=== PATIENT | male | born 2000 | race Caucasian/White ===

== ENCOUNTER → 2022-02-25 07:01 | Outpatient (CLI) | payer OTHER, SELFPAY ==
--- NOTE | ~2022-02-25 | MR_ITS ---
EXAMINATION: MR knee LT wo con DATE: 02/25/2022 07:39 INDICATION: Left knee pain and sprain of the medial collateral ligament TECHNIQUE: Magnetic resonance imaging (MRI) of the left knee was performed without intravenous contra st. Sequences included coronal PD-weighted FSE, coronal PD-weighted FS FSE, sagittal T2-weighted FSE , sagittal PD-weighted FS FSE and axial PD weighted fat saturated FSE. COMPARISON: None. FINDINGS: Medial compartment: Medial meniscus is normal. Articular cartilage is normal. Lateral compartment: Lateral meniscus is normal. Articular cartilage is normal. Patellofemoral compartment: Articular cartilage is normal. Ligaments and tendons: Complete tear of the anterior cruciate ligament. The posterior cruciate ligament is normal. There is edema surrounding the proximal half of the medial collateral ligament with small partial tear along t he anterior margin of the ligament. The fibular collateral ligament complex is normal. The extensor m echanism is normal. The visualized medial and lateral hamstring tendons as well as the iliotibial ban d are normal. Fluid: Moderate-sized left knee joint effusion. No loose osteochondral bodies identified. Osseous/other: There is curvilinear low signal intensity subarticular impaction fracture line with increased concavi ty to the lateral sulcus of the lateral femoral condyle without evident cortical discontinuity . Rojelio esponding bone contusion without evident fracture line along the posterior rim of the lateral tibial plateau. Additional bone contusions along both the anterior and posterior rims the medial tibial plat eau and along the medial rim of the anterior weightbearing medial femoral condyle. No pathologic donnie ow replacing process. IMPRESSION: 1. Complete tear of the anterior cruciate ligament 2. Mild partial tear/moderate grade sprain of the proximal medial collateral ligament. 3. Small impaction fracture underlying the lateral sulcus of the lateral femoral condyle with additio nal bone contusions at both the medial lateral tibial plateau and medial rim of the anterior weightbe aring medial femoral condyle. Reviewed, dictated and finalized at location A. IMPRESSION: 1. Complete tear of the anterior cruciate ligament 2. Mild partial tear/moderate grade sprain of the proximal medial collateral li gament. 3. Small impaction fracture underlying the lateral sulcus of the lateral femora l condyle with additional bone contusions at both the medial lateral tibial martina teau and medial rim of the anterior weightbearing medial femoral condyle.
== END ==
PROVIDERS: PCP Orthopaedic Surgery; Visit Provider Orthopaedic Surgery
DX: S83.512A Sprain of anterior cruciate ligament of left knee, initial encounter (principal); X58.XXXA Exposure to other specified factors, initial encounter
CPT/HCPCS: 73721

== ENCOUNTER 2022-10-28 08:41 | Emergency (ER) | payer OTHER, SELFPAY ==
[2022-10-28 08:50] VITALS: BP 133/67; PULSE 72; RESP 18; TEMP 37; O2SAT 100
--- NOTE | 2022-10-28 09:37 | ED.URI ---
HPI - URI/Sore Throat General Chief Complaint: Upper Respiratory Infection Stated Complaint: sore throat Time Seen by Provider: 10/28/22 09:37 Source: patient, RN notes reviewed and old records reviewed Mode of arrival: ambulatory Limitations: no limitations History of Present Illness HPI Narrative: 22-year-old male presents to the [facility] with complaints of a sore throat. Symptoms for 2 weeks. States had the beginning he felt feverish. Reports swollen glands to the left. States he has been using salt water gargles with no relief. Related Data Allergies Allergy/AdvReac Type Severity Reaction Status Date / Time NKDA Allergy Unknown Unknown Uncoded 10/28/22 09:34 Review of Systems Review of Systems: All systems reviewed & are unremarkable except as noted in HPI and below Constitutional: Constitutional: Reports no additional constitutional complaints Eyes: Eyes: Reports no additional eye complaints ENT: Reports as per HPI and Reports sore throat Cardiovascular: Cardiovascular: Reports no additional cardiovascular complaints, Denies chest pain and Denies dyspnea Respiratory: Respiratory: Reports no additional respiratory complaints, Denies chest congestion, Denies cough and Denies dyspnea Gastrointestinal: Gastrointestinal: Reports no additional gastrointestinal complaints, Denies abdominal pain, Denies nausea and Denies vomiting Musculoskeletal: Musculoskeletal: Reports no additional musculoskeletal complaints Integumentary/Breasts: Skin/Breast: Reports system reviewed and no additional complaints, except as docu Neurologic: Reports system reviewed and no additional complaints, except as documented Psychiatric: Psychiatric: Reports no additional psychiatric complaints Allergic/Immunologic: Allergic/Immunologic: Reports no additional allergic/immunologic complaints PMFSH Past Medical History Medical History GERD (gastroesophageal reflux disease) Wears glasses Surgical History Surgical History History of myringotomy Bilateral ear Hx of tonsillectomy Family History Family History Other Breast cancer Hypertension Social History Social History Smoking status: Never smoker Alcohol intake: current Substance use: current Substance use type: marijuana Gender identity (if verbalized by the patient): Male Comments At the time of my signature, I reviewed and agree with the nursing past medical, surgical, social, and family history. There is no relevant family history pertinent to the patient complaint. Exam Const: General: cooperative, healthy appearing, comfortable, no acute distress, well developed, alert and well nourished Nutritional Appearance: well nourished Orientation/consciousness: patient oriented x3 Limitations: no limitations HENMT: Head: normal to inspection Ears: hearing grossly normal bilaterally and external ears normal Face/Nose/Sinus: Normal external nose present, Normal nares present, Normal nasal mucous membranes and turbinates present and normal facial exam Face and sinus: normal facial exam Mouth: Yes Normal oral and palatal mucosa present, Yes lip normal and Yes moist mucous membranes Throat: posterior oropharynx normal, uvula midline, tonsils absent and no uvular edema Eyes: General: appearance normal, both eyes and all related structures Alignment and Position: alignment normal Periorbital: periorbital findings normal Conjunctivae: conjunctivae normal Pupils: Equal, round and reactive pupils present EOM: EOMs intact bilaterally Neck: Neck: normal visual inspection, full ROM, no lymphadenopathy and no meningeal signs Chest: Chest palpation & inspection: normal inspection of the chest Resp: Effort & Inspection: normal respiratory effort and able to
== END 2022-10-28 09:53 | disposition home or self-care (01) ==
PROVIDERS: Emergency Provider Nurse Practitioner
DX: J02.9 Acute pharyngitis, unspecified (principal)
CPT/HCPCS: 87081; 99213; G0463

== ENCOUNTER 2022-12-21 09:02 | Emergency (ER) | payer OTHER, SELFPAY ==
[2022-12-21 09:12] VITALS: BP 113/78; PULSE 58; RESP 18; TEMP 36.6; O2SAT 100
--- NOTE | 2022-12-21 09:39 | ED.URI ---
HPI - URI/Sore Throat General Chief Complaint: Upper Respiratory Infection Stated Complaint: Sore Throat Time Seen by Provider: 12/21/22 09:39 History of Present Illness HPI Narrative: 22-year-old male presented for complaint of sore throat worsening over the past week. He endorses pain is worse with swallowing, has runny nose and body aches. Denies sick contacts. Denies cough, sob, wheezing, n/v/d/f/c. Not taking anything for symptoms. Related Data Allergies Allergy/AdvReac Type Severity Reaction Status Date / Time No Known Allergies Allergy Verified 12/21/22 09:11 Review of Systems Review of Systems: CONSTITUTIONAL: Denies fever, chills, or sweats. EYES: Denies visual changes, redness, or discharge. ENT: per HPI CARDIOVASCULAR: Denies chest pain, palpitations, or edema. RESPIRATORY: Denies dyspnea. GASTROINTESTINAL: Denies abdominal pain, nausea, vomiting, or diarrhea. SKIN: Denies rash, itching, or wounds. MUSCULOSKELETAL: Denies back pain, joint pain, or myalgia. NEUROLOGIC: Denies headache PMFSH Past Medical History Medical History GERD (gastroesophageal reflux disease) Wears glasses Surgical History Surgical History History of myringotomy Bilateral ear Hx of tonsillectomy Family History Family History Other Breast cancer Hypertension Social History Social History Smoking status: Never smoker Alcohol intake: current Substance use: current Substance use type: marijuana Living arrangements: with family Occupation/Education: student Gender identity (if verbalized by the patient): Male Exam Narrative: GENERAL: Ill-appearing, no acute distress. EYES: conjunctivae clear ENT: Mucous membranes moist. TM pearly villarreal with normal light reflex bilaterally; no tragal tenderness. Oropharynx erythematous without lesions. Tonsils absent. No drooling, no hoarseness, no trismus, uvula midline. No tripod positioning, hot potato voice, or soft palate swelling. NECK: Supple. No lymphadenopathy CHEST: Clear to auscultation, breath sounds equal. No respiratory distress, speaks in full sentences. HEART: Regular rate and rhythm. No murmur heard. SKIN: Warm, dry, no rash. NEURO: Alert and oriented x3. Course Course Emergency Course: Patient is aware of diagnosis, understands and agrees to treatment plan. Anticipatory guidance given. Patient agrees to follow-up as directed and is aware of reasons to seek care at the emergency department. Portions of this record may have been created with voice recognition software Level of Care: Express Care Visit Vital Signs Vital signs: Vital Signs Temperature 97.8 F 12/21/22 09:12 Pulse Rate 58 L 12/21/22 09:12 Respiratory Rate 18 12/21/22 09:12 Blood Pressure 113/78 12/21/22 09:12 Pulse Oximetry 100 12/21/22 09:12 Temperature 97.8 F 12/21/22 09:12 Pulse Rate 58 L 12/21/22 09:12 Respiratory Rate 18 12/21/22 09:12 Blood Pressure 113/78 12/21/22 09:12 Pulse Oximetry 100 12/21/22 09:12 MDM - URI/Sore Throat MDM Narrative Medical decision making narrative: strep result reviewed with pt. Advise supportive treatments. Patient is appropriate for outpatient treatment and follow-up. Differential Diagnosis Differential diagnosis: Likely upper respiratory infection, viral infection and pharyngitis Lab Data Labs: Strep Screen Positive Group A Strep *(Reference Range: Negative)* Discharge Plan Discharge Clinical Impression: Strep pharyngitis Patient Disposition: Home, Self-Care Condition: Stable Instructions: Antibiotic Form, Strep Throat (ED) Additional Instructions: - Take the antibiotic as directed. Fever
== END 2022-12-21 09:49 | disposition home or self-care (01) ==
PROVIDERS: Emergency Provider Nurse Practitioner Family
DX: J02.0 Streptococcal pharyngitis (principal); F12.90 Cannabis use, unspecified, uncomplicated; K21.9 Gastro-esophageal reflux disease without esophagitis
CPT/HCPCS: 87880; 99213; G0463

== ENCOUNTER 2023-08-26 17:47 | Emergency (ER) | payer OTHER, SELFPAY ==
[2023-08-26 17:59] VITALS: BP 128/66; PULSE 63; RESP 16; TEMP 37.6; O2SAT 99
--- NOTE | 2023-08-26 18:15 | ED.URI ---
HPI - URI/Sore Throat General Chief Complaint: Upper Respiratory Infection Stated Complaint: fever,cough Time Seen by Provider: 08/26/23 18:10 Source: patient and RN notes reviewed Mode of arrival: ambulatory Limitations: no limitations History of Present Illness HPI Narrative: Patient presents today complaining of a 3 day history of cough, subjective fever, body aches, sweats, chills, scratchy throat, rhinorrhea. He has been taking Advil and Tylenol with mild relief. States his brother has recently been ill with similar symptoms. Related Data Home Medications Medication Instructions Recorded Confirmed No Home Medications 08/26/23 08/26/23 Allergies Allergy/AdvReac Type Severity Reaction Status Date / Time No Known Allergies Allergy Verified 08/26/23 17:55 Review of Systems Review of Systems: CONSTITUTIONAL: + body aches, fever, chills, sweats EYES: Denies visual changes, redness, or discharge. ENT: Denies congestion, or otalgia.+ rhinorrhea sore throat CARDIOVASCULAR: Denies chest pain, palpitations, or edema. RESPIRATORY: Denies dyspnea.+ cough GASTROINTESTINAL: Denies abdominal pain, nausea, vomiting, or diarrhea. GENITOURINARY: Denies dysuria or hematuria. SKIN: Denies rash, itching, or wounds. MUSCULOSKELETAL: Denies back pain, joint pain, or myalgia. NEUROLOGIC: Denies headache, numbness, tingling, or weakness. PSYCH: Denies depression or anxiety. [facility] Past Medical History Medical History GERD (gastroesophageal reflux disease) Wears glasses Surgical History Surgical History History of myringotomy Bilateral ear Hx of tonsillectomy Family History Family History Other Breast cancer Hypertension Social History Social History Smoking status: Never smoker Alcohol intake: current Substance use: current Substance use type: marijuana Living arrangements: with family Occupation/Education: student Gender identity (if verbalized by the patient): Male Comments At time of signature, I have reviewed and agree with nursing past medical, surgical, social and family history unless otherwise noted. Please see nursing chart for further information. There is no relevant family history pertinent to the presenting complaint Exam Narrative: GENERAL: Well-appearing, well-nourished, and in no acute distress. HEAD: Normocephalic, atraumatic. EYES: EOMI. No redness or drainage. Conjunctivae normal. ENT: Mucous membranes pink and moist. Nares clear. No rhinorrhea. TMs normal bilaterally. Throat mildly erythematous without edema or exudate. Uvula midline. NECK: Normal AROM. Supple. No lymphadenopathy. CHEST: No respiratory distress. Clear to auscultation. HEART: Regular rate and rhythm. No murmur appreciated. Normal peripheral pulses. EXTREMITIES: Normal range of motion. No edema. SKIN: Warm, dry, no rash. Capillary refill normal. Normal skin turgor. NEURO: No focal deficits. Alert and oriented x3. Gait steady. PSYCH: Normal affect. No signs of depression or anxiety. Course Course Level of Care: Express Care Visit Vital Signs Vital signs: Vital Signs Temperature 99.7 F H 08/26/23 17:59 Pulse Rate 63 08/26/23 17:59 Respiratory Rate 16 08/26/23 17:59 Blood Pressure 128/66 08/26/23 17:59 Pulse Oximetry 99 08/26/23 17:59 Oxygen Delivery Room Air 08/26/23 17:59 Temperature 99.7 F H 08/26/23 17:59 Pulse Rate 63 08/26/23 17:59 Respiratory Rate 16 08/26/23 17:59 Blood Pressure 128/66 08/26/23 17:59 Pulse Oximetry 99 08/26/23 17:59 Oxygen Delivery Room Air 08/26/23 17:59 Reviewed. Pt has been instructed to follow up with his PCP regarding his elevated blood pressure today. MDM - URI/S
== END 2023-08-26 18:40 | disposition home or self-care (01) ==
PROVIDERS: Emergency Provider Nurse Practitioner
DX: B34.9 Viral infection, unspecified (principal); Z20.822 Contact with and (suspected) exposure to COVID-19; F12.90 Cannabis use, unspecified, uncomplicated; K21.9 Gastro-esophageal reflux disease without esophagitis
CPT/HCPCS: 87426; 87804; 87880; 99213; C9803; G0463

== ENCOUNTER 2024-10-05 08:31 | Emergency (ER) | payer OTHER, SELFPAY ==
[2024-10-05 09:16] VITALS: BP 123/59; PULSE 64; RESP 16; TEMP 36.3; O2SAT 99
--- NOTE | 2024-10-05 09:37 | ED_ITS ---
HPI - URI/Sore Throat General Chief Complaint: Upper Respiratory Infection Stated Complaint: Sore Throat Time Seen by Provider: 10/05/24 09:37 Source: patient, RN notes reviewed and old records reviewed Mode of arrival: ambulatory Limitations: no limitations History of Present Illness HPI Narrative: Patient presents with 1 day history of sore throat with associated fever. He reports T-max 100.2?. Has been taking acetaminophen for his symptoms with good relief. Last dose yesterday. He denies any headache, runny nose. No difficulty swallowing. He is able to speak in full sentences, managing of secretions. No drooling or stridor noted. Related Data Home Medications Medication Instructions Recorded Confirmed No Home Medications 08/26/23 10/05/24 Allergies Allergy/AdvReac Type Severity Reaction Status Date / Time No Known Allergies Allergy Verified 10/05/24 09:01 Review of Systems Review of Systems: All systems reviewed & are unremarkable except as noted in HPI and below Constitutional: Constitutional: Reports no additional constitutional complaints ENT: Reports system reviewed and no additional complaints, except as documented and Reports sore throat Cardiovascular: Cardiovascular: Reports no additional cardiovascular complaints Respiratory: Respiratory: Reports no additional respiratory complaints Gastrointestinal: Gastrointestinal: Reports no additional gastrointestinal complaints [facility] Past Medical History Medical History GERD (gastroesophageal reflux disease) Wears glasses Surgical History Surgical History History of myringotomy Bilateral ear Hx of tonsillectomy Family History Family History Other Breast cancer Hypertension Social History Social History Smoking status: Never smoker Alcohol intake: current Substance use: current Substance use type: marijuana Living arrangements: with family Occupation/Education: student Gender identity (if verbalized by the patient): Male Comments At the time of my signature, I reviewed and agree with the nursing past medical, surgical, social, and family history. There is no relevant family history pertinent to the patient complaint. Exam Const: General: cooperative, no acute distress, alert and awake Orientation/consciousness: oriented to person, oriented to place and oriented to time HENMT: Head: normal to inspection Ears: TM's normal bilaterally Mouth: Yes oropharynx normal and Yes moist mucous membranes Throat: posterior oropharynx normal Resp: Effort & Inspection: normal respiratory effort and able to speak in complete sentences Auscultation: clear to auscultation bilaterally, no crackles, no rales, no rhonchi and no wheezes Cardio: Palpation: normal PMI Rate: regular rate Rhythm: regular rhythm Heart sounds: S1 normal heart sound present and S2 normal heart sound present Neuro: General: oriented to person, oriented to place and oriented to time Cranial nerves: Yes CN's II-XII intact bilaterally Psych: Appearance: grossly normal Thought process: Normal thought process present Insight: Good insight present (Psych) Judgement: Good judgement present (Psych) Course Course Level of Care: Express Care Visit Vital Signs Vital signs: Vital Signs Temperature 97.4 F L 10/05/24 09:16 Pulse Rate 64 10/05/24 09:16 Respiratory Rate 16 10/05/24 09:16 Blood Pressure 123/59 L 10/05/24 09:16 Pulse Oximetry 99 10/05/24 09:16 Oxygen Delivery Room Air 10/05/24 09:16 Temperature 97.4 F L 10/05/24 09:16 Pulse Rate 64 10/05/24 09:16 Respiratory Rate 16 10/05/24 09:16 Blood Pressure 123/59 L 10/05/24 09:16 Pulse Oximetry 99 10/05/24 09:16 Oxygen Delivery Room Air 10/05/24 09:16 Reviewed MDM - URI/Sore Throat MDM Narrative Medical decision making narrative: Reassuring physical exam, no abnormalities noted. Negative strep. Culture pending. Supportive care measures recommended. Follow with primary care provider. Emergency department for new or worse symptoms. Discharge instructions reviewed with patient, as well as provided in writing per nursing staff. The instructions also include specific and strict return/GO TO THE ER as well as f/u information. All questions have been answered, and the patient deny any further questions with discharge and discharge plan. Some parts of this dictation were generated by voice recognition software and may contain typographical and/or grammatical inaccuracies. Differential Diagnosis Differential diagnosis: Likely upper respiratory infection, otitis media, sinusitis, viral infection, influenza and pharyngitis Medical Records Attestation: I reviewed the patient's medical records. Lab Data Attestation: I reviewed the patient's lab results. Discharge Plan Discharge Clinical Impression: Upper respiratory infection Qualifiers: URI type: unspecified viral URI Qualified Code(s): J06.9 - Acute upper respiratory infection, unspecified Patient Disposition: Home, Self-Care Condition: Stable Instructions: Antibiotic Form Additional Instructions: Tylenol and/or ibuprofen per package instructions as needed for pain or discomfort. Follow-up with primary care provider. Emergency department for new or worse symptoms Patient Language: Russian Prescriptions: No Action No Home Medications Follow-up/Referrals: PHYSICIAN,WALL CRANE OPERATOR [Primary Care Provider] - Stand Alone Forms: Work/School Release IP Time of Disposition: 10:01
[2024-10-05 10:08] LABS: EDSTREPNEGPOS1 Negative (Negative)
== END 2024-10-05 10:06 | disposition home or self-care (01) ==
PROVIDERS: Emergency Provider Nurse Practitioner Family
DX: J06.9 Acute upper respiratory infection, unspecified (principal); F12.90 Cannabis use, unspecified, uncomplicated; K21.9 Gastro-esophageal reflux disease without esophagitis
CPT/HCPCS: 87081; 87880; 99213; G0463

== ENCOUNTER 2024-10-10 08:12 | Emergency (ER) | payer OTHER, SELFPAY ==
[2024-10-10 08:23] VITALS: BP 130/70; PULSE 71; RESP 16; TEMP 36.4; O2SAT 99
--- NOTE | 2024-10-10 08:37 | ED_ITS ---
HPI - URI/Sore Throat General Chief Complaint: Upper Respiratory Infection Stated Complaint: throat issue Time Seen by Provider: 10/10/24 08:37 Source: patient Mode of arrival: ambulatory Limitations: no limitations History of Present Illness HPI Narrative: 24-year-old male presents with complaint nasal congestion, sore throat, cough for 6 days. Afebrile. Reports sore throat hurts really bad and not getting better with Tylenol. Had strep test 5 days ago and was negative. Patient reports tongue is burning . No chest pain or shortness of breath. All systems reviewed and negative except as noted above. Related Data Home Medications Medication Instructions Recorded Confirmed No Home Medications 08/26/23 10/05/24 Allergies Allergy/AdvReac Type Severity Reaction Status Date / Time No Known Allergies Allergy Verified 10/05/24 09:01 Review of Systems Review of Systems: CONSTITUTIONAL: Denies fever, chills, or sweats. reports fatigue. EYES: Denies visual changes, redness, or discharge. ENT: Reports rhinorrhea, congestion, sore throat. Denies otalgia. CARDIOVASCULAR: Denies chest pain, palpitations, or edema. RESPIRATORY: reports cough. Denies dyspnea. GASTROINTESTINAL: Denies abdominal pain, nausea, vomiting, or diarrhea. GENITOURINARY: Denies dysuria or hematuria. SKIN: Denies rash or itching. MUSCULOSKELETAL: Denies back pain, joint pain, or myalgia. NEUROLOGIC: Denies headache, numbness, or weakness. PSYCHIATRIC: Denies anxiety or depression. All other systems reviewed are negative, except as documented in HPI. [facility] Past Medical History Medical History GERD (gastroesophageal reflux disease) Wears glasses Surgical History Surgical History History of myringotomy Bilateral ear Hx of tonsillectomy Family History Family History Other Breast cancer Hypertension Social History Social History Smoking status: Never smoker Alcohol intake: current Substance use: current Substance use type: marijuana Living arrangements: with family Occupation/Education: student Gender identity (if verbalized by the patient): Male Comments At time of signature, agree with nursing past medical, surgical, social and family history. There is no relevant family history pertinent to the presenting complaint. Exam Narrative: GENERAL: This is a well-nourished, well-developed patient, in no apparent distress. HEAD: normocephalic, atraumatic. EYES: PERRL. Sclera clear/white. Vision is grossly intact. EARS: External ears normal, auditory canals clear and without drainage, TMs normal without perforation. Hearing grossly intact. NOSE: External nose normal with Clear nasal drainage, mild congestion, erythema to bilateral nares THROAT: Mucous membranes moist, erythema with postnasal drainage NECK: Neck supple, non-tender without lymphadenopathy, masses or thyromegaly. CARDIOVASCULAR: Regular rate and rhythm without murmurs, gallops, or rubs. RESPIRATORY: Clear to auscultation. Breath sounds equal bilaterally. No wheezes, rales, or rhonchi. SKIN: warm, Dry, intact with no suspicious lesions or rash, good texture and turgor. NEURO: awake, alert, and oriented to person, place and time. There were no obvious focal neurologic abnormalities. EXTREMITIES: No joint tenderness, effusion, or edema noted. Course Course Level of Care: Express Care Visit Vital Signs Vital signs: Vital Signs Temperature 36.4 C L 10/10/24 08:23 Pulse Rate 71 10/10/24 08:23 Respiratory Rate 16 10/10/24 08:23 Blood Pressure 130/70 10/10/24 08:23 Pulse Oximetry 99 10/10/24 08:23 Oxygen Delivery Room Air 10/10/24 08:23 Temperature 36.4 C L 10/10/24 08:23 Pulse Rate 71 10/10/24 08:23 Respiratory Rate 16 10/10/24 08:23 Blood Pressure 130/70 10/10/24 08:23 Pulse Oximetry 99 10/10/24 08:23 Oxygen Delivery Room Air 10/10/24 08:23 reviewed MDM - URI/Sore Throat MDM Narrative Medical decision making narrative: patient positive for COVID. Strep test was negative. Throat culture ordered due to patient's concern for continued sore throat. Did educate that viral symptoms can last 10-14 days. Patient is well-appearing, nontoxic. Lungs clear to auscultation. Patient is aware of diagnosis, understands and agrees to treatment plan. Anticipatory guidance given. Patient agrees to follow-up as directed and is aware of reasons to seek care at the emergency department. Portions of this record may have been created with voice recognition software Differential Diagnosis Differential diagnosis: Likely upper respiratory infection, sinusitis, viral infection, influenza and pharyngitis Lab Data Labs: Lab Results 10/10/24 Range/Units 08:45 POC SARS CoV-2 Ag Positive (Negative) POC Grp A Strep Screen Negative (Negative) Discharge Plan Discharge Clinical Impression: COVID-19 Patient Disposition: Home, Self-Care Condition: Stable Instructions: COVID-19 (Coronavirus Disease 2019) (ED) Additional Instructions: Your COVID test was positive today. COVID is a virus and symptoms may last 10-14 days. Take an [id number] medication to treat her symptoms such as DayQuil NyQuil cold and flu. Drink at least 64 oz of water a day. Follow-up with your primary care physician if symptoms are not improving. Prescriptions: No Action No Home Medications Follow-up/Referrals: PHYSICIAN,ELEVATOR OPERATOR [Primary Care Provider] - Time of Disposition: 08:47
[2024-10-10 08:46] LABS: EDCOVIDSCREEN Positive (Negative); EDSTREPNEGPOS1 Negative (Negative)
== END 2024-10-10 08:55 | disposition home or self-care (01) ==
PROVIDERS: Emergency Provider Nurse Practitioner Family
DX: U07.1 COVID-19 (principal); K21.9 Gastro-esophageal reflux disease without esophagitis; F12.90 Cannabis use, unspecified, uncomplicated
CPT/HCPCS: 87070; 87426; 87880; 99213; G0463